=== PATIENT | female | born 1970 | race Two or more races ===

== ENCOUNTER 2018-09-01 18:42 | Emergency (ER) | payer OTHER, MEDICAID ==
[~2018-09-01] VITALS: Ht 162.6 cm; Wt 82.0 kg
[2018-09-01] MEDS ORDERED: ketorolac trometh inj. 60 MG/2 ML VIAL IM ONE (20:45)
[2018-09-01] MEDS ORDERED: ACET-3067 PO (20:47)
[2018-09-01] MEDS ORDERED: CYCL-1 PO (20:47)
[2018-09-01] MEDS ORDERED: IBUP-1984 PO (20:47)
[2018-09-01 21:03] VITALS: BP 133/94
== END 2018-09-01 21:05 | disposition home or self-care (01) ==
LOC: ER 18:43
DX: S06.0X0A Concussion without loss of consciousness, initial encounter (principal); S13.8XXA Sprain of joints and ligaments of other parts of neck, initial encounter; M62.830 Muscle spasm of back; Z88.8 Allergy status to other drugs, medicaments and biological substances; V49.88XA Car occupant (driver) (passenger) injured in other specified transport accidents, initial encounter; Y93.89 Activity, other specified; Y92.413 State road as the place of occurrence of the external cause; Y99.9 Unspecified external cause status
CPT/HCPCS: 96372; 99283; J1885